=== PATIENT | female | born 1955 | race African-American/Black ===

== ENCOUNTER 2018-08-20 08:07 | Emergency (ER) | payer SELFPAY ==
[~2018-08-20] VITALS: Ht 167.6 cm; Wt 67.7 kg
[2018-08-20 08:13] VITALS: PULSE 98; TEMP 98.4
[2018-08-20] MEDS ORDERED: NOVOLIN 70/30 710 ML SQ ×2 (09:41→09:42)
[2018-08-20] MEDS ORDERED: [UNRECOGNIZED DRUG - OTHER] PO (09:44)
[2018-08-20 09:46] VITALS: BP 148/71
== END 2018-08-20 09:50 | disposition home or self-care (01) ==
LOC: COL.ER 08:07
DX: S01.81XA Laceration without foreign body of other part of head, initial encounter (principal); I10 Essential (primary) hypertension; E11.9 Type 2 diabetes mellitus without complications; Z79.4 Long term (current) use of insulin; W01.198A Fall on same level from slipping, tripping and stumbling with subsequent striking against other object, initial encounter; Y92.009 Unspecified place in unspecified non-institutional (private) residence as the place of occurrence of the external cause

== ENCOUNTER 2018-08-27 14:42 | Emergency (ER) | payer SELFPAY ==
[~2018-08-27 14:42] MED LIST: NOVOLIN 70/30 710 ML SQ; [UNRECOGNIZED DRUG - OTHER] PO
[2018-08-27 15:01] VITALS: PULSE 77
== END 2018-08-27 15:01 | disposition home or self-care (01) ==
LOC: COL.ER 14:42
DX: S01.81XD Laceration without foreign body of other part of head, subsequent encounter (principal); X58.XXXD Exposure to other specified factors, subsequent encounter

== ENCOUNTER → 2018-12-31 | Outpatient (CLI) | payer SELFPAY ==
[2018-12-31 18:07] LABS: CHOLESTEROL RISK RATIO 5.3
== END ==
LOC: ZCOL.LAB 17:08
PROVIDERS: Family Medicine
DX: E11.9 Type 2 diabetes mellitus without complications (principal)